=== PATIENT | female | born 1975 | race Caucasian/White ===

== ENCOUNTER → 2020-05-02 10:49 | Outpatient (CLI) | payer OTHER, SELFPAY ==
--- NOTE | ~2020-05-02 | MM_ITS ---
EXAMINATION: MM screening [facility] BI w jimenez HISTORY: Screening TECHNIQUE: Craniocaudal and mediolateral oblique 3-D tomosynthesis images were obtained and synthetic 2-D images were generated. CAD analysis was submitted and interpreted. COMPARISON: Comparison to multiple prior studies sequentially, with oldest reviewed study dated 11/18. BREAST PARENCHYMAL COMPOSITION: There are scattered areas of fibroglandular density. FINDINGS: There is no evidence of suspicious mass, calcification, or architectural distortion to sugg est malignancy in either breast. There has been no suspicious interval change. IMPRESSION: 1. No mammographic evidence of malignancy. 2. Recommend routine screening mammography in one year. BI-RADS Category 1: Negative Reviewed, dictated and finalized at location A. ECT ARTIST
== END ==
PROVIDERS: Visit Provider Nurse Practitioner
DX: Z12.31 Encounter for screening mammogram for malignant neoplasm of breast (principal)
CPT/HCPCS: 77063; 77067

== ENCOUNTER → 2021-10-28 12:40 | Outpatient (CLI) | payer OTHER, SELFPAY ==
--- NOTE | ~2021-10-28 | MM_ITS ---
EXAMINATION: MM screening [facility] w jimenez HISTORY: Screening TECHNIQUE: Craniocaudal and mediolateral oblique 3-D tomosynthesis images were obtained and synthetic 2-D images were generated. CAD analysis was submitted and interpreted. COMPARISON: Comparison to multiple prior studies sequentially, with oldest reviewed study dated 07/2016. BREAST PARENCHYMAL COMPOSITION: Breast composed of scattered areas of fibroglandular density FINDINGS: There is no evidence of suspicious mass, calcification, or architectural distortion to sugg est malignancy in either breast. There has been no suspicious interval change. IMPRESSION: 1. No mammographic evidence of malignancy. 2. Recommend routine screening mammography in one year. BI-RADS Category 1: Negative Reviewed, dictated and finalized at location A.
== END ==
PROVIDERS: PCP Nurse Practitioner; Visit Provider Nurse Practitioner
DX: Z12.31 Encounter for screening mammogram for malignant neoplasm of breast (principal)
CPT/HCPCS: 77063; 77067

== ENCOUNTER 2022-03-16 09:15 | Emergency (ER) | payer OTHER, SELFPAY ==
[2022-03-16 09:21] VITALS: BP 140/64; PULSE 91; RESP 16; TEMP 37.1; O2SAT 100
--- NOTE | 2022-03-16 11:09 | ED.FEMALEGU ---
HPI - Female Genitourinary General Chief complaint: Urogenital-Female Stated complaint: Urinary Problem Time Seen by Provider: 03/16/22 10:55 Source: patient, RN notes reviewed and old records reviewed Mode of arrival: ambulatory Limitations: no limitations History of Present Illness HPI Narrative: 46-year-old female who presents to [facility] with complaints of urinary burning and frequency patient states for the last 2 or 3 days she has also yellowish green discharge and pain denies any history of STDs is sore for STD exposure states she did take an Epson salt bath. Patient reports she had a telehealth visit on the and was put on Macrobid took the last dose of antibiotic today and does not feel that she is any better. Patient states she has suprapubic discomfort. Patient reports initial symptoms started on the she has not experienced any nausea or vomiting or any known fevers. MD elicited complaint: dysuria and other (suprapubic pain, vaginal discharge) Onset (ago): day(s) (8-9 days) Female Urogenital Radiation: Suprapubic Severity scale (1-10): 8 Quality of pain: sharp and aching Vaginal discharge: other (yellowish green no odor) Related Data Home Medications Medication Instructions Recorded Confirmed Iron (ferrous sulfate) 03/16/22 03/16/22 calcium carbonate 600 mg-vitamin tablet PO 03/16/22 D3 10 mcg (400 unit) tablet (Calcium with Vitamin D) fluoxetine 20 mg capsule 20 mg PO DAILY 03/16/22 03/16/22 norethindrone 1 mg-ethinyl 1 tablet PO DAILY 03/16/22 03/16/22 estradiol 10 mcg (24)-iron 10 mcg(2) tablet (Lo Loestrin Fe) Allergies Allergy/AdvReac Type Severity Reaction Status Date / Time Sulfa (Sulfonamide Allergy Severe swelling, Verified 03/16/22 10:27 Antibiotics) hives and itching Review of Systems Review of Systems: CONSTITUTIONAL: Denies fever, chills, or sweats. CARDIOVASCULAR: Denies chest pain, palpitations, or edema. RESPIRATORY: Denies cough or dyspnea. GASTROINTESTINAL: Denies abdominal pain, nausea, vomiting, or diarrhea. GENITOURINARY: Reports dysuria, frequency, urgency. Denies flank pain or hematuria. Reports suprapubic pain SKIN: Denies rash or itching. MUSCULOSKELETAL: Denies back pain or myalgia. Denies CVA tenderness NEUROLOGIC: Denies headache All systems reviewed & are unremarkable except as noted in HPI and below PMFSH Past Medical History Medical History (Updated 03/16/22 @ 11:34 by Meme Diallo NP) Anxiety and depression Surgical History Surgical History (Updated 03/16/22 @ 11:27 by Meme Diallo NP) History of sinus surgery History of tonsillectomy Social History Social History (Updated 03/16/22 @ 11:26 by Meme Diallo NP) Smoking status: Never smoker Alcohol intake: current Alcohol use details: social Substance use type: does not use Living arrangements: with family Gender identity (if verbalized by the patient): Female Comments At time of signature, agree with nursing past medical, surgical, social and family history. There is no relevant family history pertinent to the presenting complaint Exam Narrative: GENERAL: Well-appearing, well-nourished, and in no acute distress. HEAD: Normocephalic, atraumatic. NECK: Supple.no lymphadenopathy CHEST: Clear to auscultation. No respiratory distress.SAO2 100% on room air HEART: Regular rate and rhythm. No murmur heard. Normal peripheral pulses. ABDOMEN: Soft, tender suprapubic tender, nondistended, normal active bowel sounds. No CVA tenderness, urinary burning, frequency,urgency, EXTREMITIES: Normal range of motion. No edema. SKIN: Warm, dry, no rash. NEURO: No focal deficits. Alert and oriented x3. Course Course Emergency Course: Patient is aware of diagnosis, understands and agrees to treatment plan.? Anticipatory guidance given.? Patient agrees to follow-up as directed and is aware of reasons to seek care at the emergency department. Portions of this
== END 2022-03-16 11:42 | disposition home or self-care (01) ==
PROVIDERS: Emergency Provider Registered Nurse; PCP Obstetrics & Gynecology Gynecology
DX: N39.0 Urinary tract infection, site not specified (principal); N89.8 Other specified noninflammatory disorders of vagina; F41.9 Anxiety disorder, unspecified; F32.A Depression, unspecified
CPT/HCPCS: 81003; 87086; 99213; G0463

== ENCOUNTER → 2022-12-20 15:11 | Outpatient (CLI) | payer OTHER, SELFPAY ==
--- NOTE | ~2022-12-20 | MM_ITS ---
EXAMINATION: MM screening [facility] BI w jimenez HISTORY: Screening mammogram TECHNIQUE: Craniocaudal and mediolateral oblique 3-D tomosynthesis images were obtained and synthetic 2-D images were generated. CAD analysis was submitted and interpreted. COMPARISON: 10/28/2021, 05/02/2020, 05/13/2019, 11/06/2018, 10/26/2018 BREAST PARENCHYMAL COMPOSITION: There are scattered areas of fibroglandular density. FINDINGS: No suspicious mass, calcification, or architectural distortion are identified in either deborah ast to suggest malignancy. There has been no suspicious interval change. IMPRESSION: 1. No mammographic evidence of malignancy. 2. Recommend routine screening mammography in one year. BI-RADS Category 1: Negative Reviewed, dictated and finalized at location A.
== END ==
PROVIDERS: PCP Nurse Practitioner; Visit Provider Nurse Practitioner
DX: Z12.31 Encounter for screening mammogram for malignant neoplasm of breast (principal)
CPT/HCPCS: 77063; 77067

== ENCOUNTER 2023-06-28 06:41 | Day surgery (SDC) | payer OTHER, SELFPAY ==
[2023-05-05 07:35] VITALS: BMI 33.8
[2023-06-28 07:33] VITALS: BP 116/73; PULSE 63; RESP 18; TEMP 36.6; O2SAT 100; BMI 33.8
--- NOTE | 2023-06-28 07:33 | P.PNAN_ITS ---
Anes - Initial Pre Proc Eval Procedure: Operation Date: 06/28/23 08:30 Proposed Procedures p Screening Colonoscopy - Liam Brownlee MD Date/Time: 06/28/23 07:33 Surgeon: Liam Brownlee MD Pre Op Diagnosis: Screening Neoplasm of Colon Patient Data Age: 47 Gender: F Height: 1.57 m Weight: 83.915 kg Allergies Allergy/AdvReac Type Severity Reaction Status Date / Time Sulfa (Sulfonamide Allergy Severe swelling, Verified 06/09/23 12:42 Antibiotics) hives and itching Home Medications Medication Instructions Recorded Confirmed Type Iron (ferrous sulfate) 1 tablet PO DIRECTED 03/16/22 06/28/23 History fluoxetine 20 mg capsule 20 mg PO DAILY 03/16/22 06/28/23 History norethindrone 1 mg-ethinyl 1 tablet PO DAILY 03/16/22 06/28/23 History estradiol 10 mcg (24)-iron 10 mcg(2) tablet (Lo Loestrin Fe) Vitamin D3 1 tab-cap PO DIRECTED 06/09/23 06/28/23 History Patient hx anesthesia problems: none Family hx anesthesia problems: none Results Review: All pre-operative results and documents have been reviewed as part of the pre- operative evaluation. [facility] Past Medical History Medical History (Updated 06/28/23 @ 07:33 by Enoch Ang MD) Anxiety and depression Obesity Surgical History Surgical History (Updated 03/16/22 @ 11:27 by Meme Diallo NP) History of sinus surgery History of tonsillectomy Social History Social History Smoking status: Never smoker Alcohol intake: current Drinks per week: 1 Alcohol use details: social Substance use type: does not use Living arrangements: with family Gender identity (if verbalized by the patient): Female Anes - Eval Final PreProcedure Day of Procedure 06/28/23 07:33 Patient weight: obese Heart: regular rate and rhythm Lungs: clear to auscultation Airway: Mallampati scale class II Neurological: alert and oriented Last oral intake: >/= 8 hours ASA classification: II Emergent: no Anesthetic plan: proceed Anesthesia type and monitoring: general GIVS and standard monitoring Results Review: All pre-operative results and documents have been reviewed as part of the pre- operative evaluation. Informed Consent: The patient's anesthetic plan and its attendant risks and benefits were discussed with the patient/family/POA. Questions were solicited and answers provided to the satisfaction of the patient/family/POA.
[2023-06-28] MEDS: LACTATED RINGERS 1,000 ML 150 ML IV CONT (07:54)
--- NOTE | 2023-06-28 08:22 | P.HP_ITS ---
History of Present Illness History of Present Illness Consent: Risks, benefits, and alternatives have been discussed and questions answered. Patient agrees to proceed with procedure. Chief complaint: Screening Neoplasm of Colon Narrative: Leesa Mcgraw is a 47 year old female presents for screening colonoscopy. Patient's current weight appetite and bowel movements are normal. Patient denies abdominal pain. She has had no bleeding. Family history noncont ributory. Review of Systems Review of Systems: Review of systems noncontributory. [facility] Past Medical History Medical History (Updated 06/28/23 @ 08:23 by Liam Brownlee MD) Anxiety and depression Obesity Surgical History Surgical History (Updated 03/16/22 @ 11:27 by Meme Diallo NP) History of sinus surgery History of tonsillectomy Social History Social History Smoking status: Never smoker Alcohol intake: current Drinks per week: 1 Alcohol use details: social Substance use type: does not use Living arrangements: with family Gender identity (if verbalized by the patient): Female Meds Home Medications and Allergies Home Medications Medication Instructions Recorded Confirmed Type Iron (ferrous sulfate) 1 tablet PO DIRECTED 03/16/22 06/28/23 History fluoxetine 20 mg capsule 20 mg PO DAILY 03/16/22 06/28/23 History norethindrone 1 mg-ethinyl 1 tablet PO DAILY 03/16/22 06/28/23 History estradiol 10 mcg (24)-iron 10 mcg(2) tablet (Lo Loestrin Fe) Vitamin D3 1 tab-cap PO DIRECTED 06/09/23 06/28/23 History Allergies Allergy/AdvReac Type Severity Reaction Status Date / Time Sulfa (Sulfonamide Allergy Severe swelling, Verified 06/09/23 12:42 Antibiotics) hives and itching Vital Signs Vital Signs - 24 hr 06/28/23 07:33 Temperature 98 F Pulse Rate 63 Respiratory Rate 18 Blood Pressure 116/73 Pulse Oximetry 100 Oxygen Delivery Room Air Exam Narrative: Physical exam reveals patient to be alert. Vital signs stable. HEENT exam is unremarkable. Patient is anicteric. Lungs are clear to auscultation and to percussion. Extra sounds. Abdomen bowel sounds are present soft nontender with no organomegaly. Digital external rectal exam is normal. Assessment and Plan Assessment and plan (1) Encounter for screening colonoscopy: Code(s): Z12.11 - Encounter for screening for malignant neoplasm of colon Status: Acute Assessment and Plan: Patient presents today for screening colonoscopy. She appears to be at average risk for colon polyps.
[2023-06-28 08:53] VITALS: BP 100/63; PULSE 68; RESP 14; O2SAT 100
[2023-06-28 09:03] VITALS: BP 103/73; PULSE 62; RESP 16; O2SAT 100
[2023-06-28 09:13] VITALS: BP 114/67; PULSE 68; RESP 14; O2SAT 100
--- NOTE | 2023-06-28 09:17 | WPDANESPN ---
Anes - Prog Note Post-Op Date/Time: 06/28/23 09:17 Cardiovascular status: normal Respiratory status: normal Airway patency: baseline Mental status: baseline Post-Op hydration status: normal Vital Signs: Last Vital Signs Temp 36.6 C 06/28/23 07:33 Pulse 62 06/28/23 09:03 Resp 16 06/28/23 09:03 BP 103/73 06/28/23 09:03 Pulse Ox 100 06/28/23 09:03 O2 Del Method Room Air 06/28/23 09:03 Pain Score (VAS): 0/10 I/O: Intake & Output 06/27/23 06/28/23 06/28/23 23:59 07:59 15:59 Intake Total 350 Balance 350 Patient Feedback: Patient satisfied with anesthetic care.
== END 2023-06-28 09:36 | disposition home or self-care (01) ==
PROVIDERS: Visit Provider Internal Medicine Gastroenterology
PROC: 0DJD8ZZ Inspection of Lower Intestinal Tract, Via Natural or Artificial Opening Endoscopic (ICD-10-PCS; CPT 45378; principal; 2023-06-28 08:30)
DX: Z12.11 Encounter for screening for malignant neoplasm of colon (principal); D12.5 Benign neoplasm of sigmoid colon; K64.8 Other hemorrhoids
CPT/HCPCS: 45385

== ENCOUNTER 2023-06-28 07:58 | Outpatient (NON) | payer OTHER, SELFPAY | END 2023-06-28 07:59 | disposition home or self-care (01) | PROVIDERS: Visit Provider Internal Medicine Gastroenterology | DX: Z12.11 Encounter for screening for malignant neoplasm of colon (principal); K63.5 Polyp of colon | CPT/HCPCS: 88305 ==

== ENCOUNTER 2024-02-22 15:24 | Outpatient (CLI) | payer OTHER, SELFPAY ==
--- NOTE | ~2024-02-22 | MM_ITS ---
EXAMINATION: MM screening [facility] BI w jimenez HISTORY: Screening mammogram TECHNIQUE: Craniocaudal and mediolateral oblique 3-D tomosynthesis images were obtained and synthetic 2-D images were generated. CAD analysis was submitted and interpreted. COMPARISON: 12/20/2022, 10/28/2021, 05/02/2020, 05/13/2019 BREAST PARENCHYMAL COMPOSITION:Not Dense. There are scattered areas of fibroglandular density. FINDINGS: No suspicious mass, calcification, or architectural distortion are identified in either deborah ast to suggest malignancy. There has been no suspicious interval change. IMPRESSION: No mammographic evidence of malignancy. Recommend routine screening mammography in one year. BI-RADS Category 1: Negative Reviewed, dictated and finalized at location .
== END 2024-02-22 15:25 | disposition home or self-care (01) ==
PROVIDERS: PCP Nurse Practitioner; Visit Provider Nurse Practitioner
DX: Z12.31 Encounter for screening mammogram for malignant neoplasm of breast (principal)
CPT/HCPCS: 77063; 77067